=== PATIENT | female | born 1930 | race Caucasian/White ===

== ENCOUNTER → 2017-10-12 | Outpatient (CLI) | payer MEDICARE | END | disposition home or self-care (01) | LOC: PCVCIMAG 10:01 | DX: I07.1 Rheumatic tricuspid insufficiency (principal); I10 Essential (primary) hypertension; I42.9 Cardiomyopathy, unspecified; E78.00 Pure hypercholesterolemia, unspecified; C85.90 Non-Hodgkin lymphoma, unspecified, unspecified site; Z79.82 Long term (current) use of aspirin; Z79.899 Other long term (current) drug therapy | CPT/HCPCS: 80061; 93005; 93306; G0463 ==

== ENCOUNTER → 2018-05-17 | Outpatient (CLI) | payer MEDICARE | END | disposition home or self-care (01) | LOC: PCVCCLINIC 15:32 | PROVIDERS: ATTEND Internal Medicine Cardiovascular Disease | DX: I87.303 Chronic venous hypertension (idiopathic) without complications of bilateral lower extremity (principal); I42.9 Cardiomyopathy, unspecified; C85.90 Non-Hodgkin lymphoma, unspecified, unspecified site; E78.5 Hyperlipidemia, unspecified; I10 Essential (primary) hypertension; I44.0 Atrioventricular block, first degree; Z79.82 Long term (current) use of aspirin | CPT/HCPCS: 80061; 93005; G0463 ==

== ENCOUNTER → 2019-02-14 | Outpatient (CLI) | payer MEDICARE ==
--- NOTE | 2019-02-14 10:25 | PCVCIMAG ---
APPROVED REPORT Study performed: 02/14/2019 09:21:50 EXAM: Comprehensive 2D, Doppler, and color-flow Echocardiogram Patient Location: Echo lab Status: routine BSA: 2.07 HR: 63 bpmBP: 110/76 mmHg Rhythm: NSR Other Information Study Quality: Technically Difficult Risk Factors: Cardiac Risk Factors: HTN, Hyperlipidemia Indications Cardiomyopathy Av Block, History of non-hogdkins lymphoma 2D Dimensions IVSd: 12.10 (7-11mm)LVOT Diam: 19.82 (18-24mm) LVDd: 51.79 mm PWd: 11.01 (7-11mm)Ascending Ao: 38.42 (22-36mm) LVDs: 45.95 (25-40mm) Left Atrium: 47.54 (27-40mm) Aortic Root: 35.54 mm LV Single Plane 4CH: 43.18 % LV Single Plane 2CH: 38.23 % Biplane EF: 40.6 % Volumes Left Atrial Volume (Systole) Single Plane 4CH: 43.55 mLSingle Plane 2CH: 48.58 mL LA ESV Index: 28.00 mL/m2 Aortic Valve AoV Peak Sumit.: 1.71 m/s AO Peak Gr.: 11.65 mmHgLVOT Max P.96 mmHg LVOT Max V: 0.86 m/s NOBLE Vmax: 1.55 cm2 Mitral Valve E/A Ratio: 0.7 MV Decel. Time: 186.17 ms MV E Max Sumit.: 0.84 m/s MV A Sumit.: 1.19 m/s Pulmonary Valve PV Peak Gr.: 2.88 mmHg Pulmonary Vein P Vein S: 0.75 m/sP Vein A: 0.35 m/s P Vein D: 0.39 m/sP Vein A Dur.: 148.8 msec P Vein S/D Ratio: 1.92 Tricuspid Valve TR Peak Sumit.: 2.32 m/s TR Peak Gr.: 21.58 mmHg Left Ventricle The left ventricle is normal size. There is normal LV segmental wall motion. There is normal left ventricular wall thickness. Left ventricular systolic function is mildly decreased. LVEF is 40%. This study is not technically sufficient to allow evaluation of the LV diastolic function. Right Ventricle The right ventricle is normal size. The right ventricular systolic function is normal. Atria Left atrium is mildly dilated. Right atrium is mildly dilated. Aortic Valve The aortic valve is normal in structure. No aortic regurgitation is present. There is no aortic valvular stenosis. Mitral Valve The mitral valve is normal in structure. There is no mitral valve regurgitation noted. No evidence of mitral valve stenosis. Tricuspid Valve The tricuspid valve is normal in structure. Trace tricuspid regurgitation. Pulmonary artery pressure is 29mmhg. Pulmonic Valve The pulmonary valve is normal in structure. Trace pulmonic regurgitation. Great Vessels The aortic root is normal in size. IVC is normal in size and collapses >50% with inspiration. Pericardium There is no pericardial effusion. <Conclusion> The left ventricle is normal size. Left ventricular systolic function is mildly decreased. LVEF is 40%. This study is not technically sufficient to allow evaluation of the LV diastolic function. The right ventricle is normal size. Left atrium is mildly dilated. Right atrium is mildly dilated. The aortic valve is normal in structure. There is no mitral valve regurgitation noted. Trace tricuspid regurgitation. Pulmonary artery pressure is 29mmhg. The aortic root is normal in size. There is no pericardial effusion.
== END | disposition home or self-care (01) ==
LOC: PCVCIMAG 09:11
PROVIDERS: ATTEND Internal Medicine Cardiovascular Disease
DX: I42.9 Cardiomyopathy, unspecified (principal); I10 Essential (primary) hypertension
CPT/HCPCS: 36415; 80061; 93005; 93306; G0463